=== PATIENT | female | born 1950 | race Caucasian/White ===

== ENCOUNTER 2016-06-05 21:15 | Emergency (ER) | payer MEDICARE, OTHER ==
[2016-06-05 21:35] VITALS: BP 112/68
[2016-06-05] MEDS ORDERED: HYDROmorphone 2 MG/ML SDV IM ONE (21:52)
[2016-06-05] MEDS ORDERED: Ondansetron 8 MG Tab.DIS PO ONE (21:52)
[2016-06-05] MEDS ORDERED: hydrOXYzine HCl 50 MG/ML SDV IM ONE (21:53)
--- NOTE | 2016-06-06 07:13 | ER ---
DATE SEEN: 06/05/2016 TIME SEEN: The patient was seen at 2140 hours. HISTORY OF PRESENT ILLNESS: This 65-year-old woman comes in with a history of onset 14/10 right frontotemporal pounding headache, minimally responsive to 6 tablets of Tylenol, onset 1300 hours today, with associated nausea, photophobia, phonophobia, mild neck pain, without weakness, vomiting, fever, sinus congestion, history of trauma, or facial surgery. The age she had the onset of migraines was 30 years of age. Previous CAT scan approximately 2 years ago was negative. The patient denies facial flushing (cluster headaches)and fever. No compromise in her vision. The nausea was associated with moderate heaves. The patient was transferred to the hospital by her son-in-law. She feels she is under a lot of stress because her is very ill and has stage IV cirrhosis with pneumonia, and she cares for him day and night. In the past, she has had morphine for headaches. REVIEW OF SYSTEMS: HEENT: Negative. As noted above. No sinusitis. No sore throat. No facial trauma or head trauma. CARDIORESPIRATORY: Occasional cough. No shortness of breath. No chest pain, irregular heartbeat or syncope, near syncope, back pain, arm pain, jaw pain, neck pain, or abdominal pain. MUSCULOSKELETAL: Chronic pain, restless legs, and chronic low back pain. ALLERGIES: Compazine, metoclopramide, NSAIDs, penicillins, pseudoephedrine, sumatriptan, tramadol, and tape. CURRENT MEDICATIONS: 1. Requip. 2. Propranolol 120 daily. 3. Meclizine p.r.n. 25 mg. 4. Hydrocodone with acetaminophen 10/325. 5. Hydrochlorothiazide and spironolactone 25/25. 6. Gabapentin 300 mg b.i.d. 7. Soma 350 mg t.i.d. PAST SURGICAL HISTORY: None. 3, para 3-0-0-3. PHYSICAL EXAMINATION: VITAL SIGNS: Blood pressure 112/68, heart rate 67 and regular, oxygen saturation 99%, respiratory rate 18, temperature is 35.8 degrees centigrade. GENERAL: The patient is well nourished, in mild distress. Lights are off in the room. The patient is sitting. I met her before and she was appreciative of the previous ER visit and care. HEENT: Moderate photophobia. Pupils are equal, round, and reactive to light. Conjugate gaze noted. Hearing is good. NECK: No bruits. Pharynx is semidry. LUNGS: Clear to auscultation. No rales, no rhonchi. HEART: S1, S2. No murmur. No irregular rate or rhythm. ABDOMEN: Soft. No guarding. No abdominal discomfort. No rebound. EXTREMITIES: Lower extremities: No edema. JOINTS: Nontender. No discomfort. MUSCULOSKELETAL: Decreased muscle mass, thighs. Mild decreased muscle mass. NEURO: Deep tendon reflexes in upper and lower extremities symmetrical, hypoactive, but present. Ankle jerks absent. Cranial nerves 2 through 12 intact. Oriented x3. No pronator drift. No asymmetry of muscle strength. No dysmetria. Gait appropriate. ASSESSMENT AND PLAN: 1. Migraine. Somewhat unusual to have this at her age. She talked about stress, fatigue, not sleeping because she has been busy caring for her . Plan initially was to use dopamine antagonists, Reglan. However, she is allergic to it; consequently, patient felt that she could get along very nicely with a shot. She was given 2 mg of Dilaudid IM and Zofran for nausea sublingually 8 mg, and dismissed with her headache which is much improved. 2. Headache. 3. Stress. 4. Fatigue. 5. Restless legs. 6. Multiple allergies. 7. History of coronary artery disease. 8. Hypertension, treated. 9. Chronic low back pain. /[id number] DANG/WILBERTO FOFANA
== END 2016-06-05 22:10 | disposition home or self-care (01) ==
LOC: FB.ED 21:15
DX: G43.909 Migraine, unspecified, not intractable, without status migrainosus (principal); F43.9 Reaction to severe stress, unspecified; G25.81 Restless legs syndrome; I25.10 Atherosclerotic heart disease of native coronary artery without angina pectoris; I10 Essential (primary) hypertension; M54.5 Low back pain; G89.29 Other chronic pain; Z88.5 Allergy status to narcotic agent; Z88.0 Allergy status to penicillin; Z88.6 Allergy status to analgesic agent; Z91.09 Other allergy status, other than to drugs and biological substances
CPT/HCPCS: 96372; 99283; A9270; J1170; J3410; 99284

== ENCOUNTER 2016-06-28 13:24 | Emergency (ER) | payer MEDICARE, OTHER ==
[2016-06-28] MEDS ORDERED: HYDROmorphone 2 MG/ML SDV IM ONE (13:46)
[2016-06-28] MEDS ORDERED: hydrOXYzine HCl 50 MG/ML SDV IM ONE (13:46)
--- NOTE | 2016-06-28 13:50 | EDM.PDOC ---
ED HPI HEADACHE COMPLAINT - General Stated Complaint: MIGRAINE Time Seen by Provider: 06/28/16 13:25 Source: Reports: Patient, Family History Limitations: Reports: Other (H/A) - History of Present Illness INITIAL COMMENTS - FREE TEXT/NARRATIVE: 65 yaers old w f with h/o migraine headache, come top the ed due to serever "migraine" Headache. He SO last Wednesday. Pain is located behind her l r eye. no trauma, not the worst headache ever. No has nauseas as well, did not vomit. Symptom Onset Date: 06/28/16 Symptom Onset Time: 08:00 Timing/Duration: Reports: hour(s): Location: Reports: frontal, temporal, right Quality: Reports: pounding, squeezing Severity: Reports: moderate Context: Reports: other (stress) Associated Symptoms: Reports: photophobia - Related Data Allergies/ADRs: Allergies Allergy/AdvReac Type Severity Reaction Status Date / Time prochlorperazine edisylate Allergy Intermediate Blurred Verified 06/28/16 13:40 [From Compazine] Vision prochlorperazine maleate Allergy Intermediate Blurred Verified 06/28/16 13:40 [From Compazine] Vision levofloxacin [From Levaquin] Allergy Tremors Verified 06/28/16 13:40 metoclopramide Allergy Tremors Verified 06/28/16 13:40 NSAIDS (Non-Steroidal Allergy Stomach Verified 06/28/16 13:40 Anti-Inflamma Upset Penicillins Allergy Stomach Verified 06/28/16 13:40 Upset pseudoephedrine HCl Allergy Tachycardia Verified 06/28/16 13:40 [From Sudafed] sumatriptan [From Imitrex] Allergy Chest Pain Verified 06/28/16 13:40 sumatriptan succinate Allergy Chest Pain Verified 06/28/16 13:40 [From Imitrex] tramadol Allergy Tachycardia Verified 06/28/16 13:40 tape Allergy Rash Uncoded 06/28/16 13:40 Home Meds: Home Meds HCTZ/Spironolactone [Spironolactone/HCTZ 25-25 MG] 2 tab PO BID 04/15/13 [ History] Meclizine [Antivert] 25 mg PO ASDIRECTED PRN 04/15/13 [History] Multivitamin [Multivitamins] 1 each PO DAILY 04/15/13 [History] Propranolol [Inderal LA] 120 mg PO DAILY 04/15/13 [History] rOPINIRole [Requip] 2 mg PO BEDTIME 04/15/13 [History] Carisoprodol [Soma] 350 mg PO TID 07/23/13 [History] Hydrocodone/Acetaminophen [Hydrocodon-Acetaminophn 10-325] 1 each PO Q6HR PRN [History] Gabapentin [Neurontin] 300 mg PO BID 02/15/16 [History] traZODone 100 mg PO DAILY 06/28/16 [History] Past Medical History - Past Health History Medical/Surgical History: Denies Medical/Surgical History HEENT History: Reports: Sinusitis Other HEENT History: SINUS INFECTIONS Cardiovascular History: Reports: Other (see below) Other Cardiovascular History: takes BP med for water retention Respiratory History: Reports: Sleep apnea Other Respiratory History: has CPAP Gastrointestinal History: Reports: GERD, PUD Other Gastrointestinal History: ulcer when kid Genitourinary History: Reports: Renal calculus 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: Musculoskeletal History: Reports: Arthritis, Back pain, chronic, Fracture, Fibromyalgia Other Musculoskeletal History: stress fx in back x 2 Neurological History: Reports: Migraines Psychiatric History: Reports: Anxiety, Depression - Infectious Disease History Infectious Disease History: Reports: Chicken pox, Measles, Mumps - Past Surgical History HEENT Surgical History: Reports: Oral surgery, Tonsillectomy GI Surgical History: Reports: Appendectomy, Cholecystectomy, Colonoscopy, EGD, Hernia repair/other Female Surgical History: Reports: Hysterectomy, Salpingo-oophorectomy Other Female Surgeries/Procedures: bladder repair Musculoskeletal Surgical History: Reports: Arthroscopic procedure, Carpal tunnel , Knee replacement Other Musculoskeletal Surgeries/Procedures:: RIGHT ANKLE, LEFT THUMB, bilat knee replacement, bilat carpal tunnel surg Social & Family History - Tobacco Use Smoking Status *Q: Never Smoker Second Hand Smoke Exposure: No - Caffeine Use Caffeine Use: Reports: None - Alcohol Use Days Per Week of Alcohol Use: 1 Number of Drinks Per Day: 2 Total Drinks Per Week: 2 - Recreational Drug Use Recreational Drug Use: No - Living Situation & Occupation Living situation: Reports: ED ROS GENERAL - Review of Systems Review Of Systems: See Below Constitutional: Reports: no symptoms HEENT: Reports: Other (h/a) Respiratory: Reports: No Symptoms Cardiovascular: Reports: No symptoms Endocrine: Reports: no symptoms GI/Abdominal: Reports: No symptoms : Reports: no symptoms Musculoskeletal: Reports: no symptoms Skin: Reports: no symptoms Neurological: Reports: No Symptoms Psychiatric: Reports: No symptoms Hematologic/Lymphatic: Reports: no symptoms Immunologic: Reports: no symptoms - Physical Exam Exam: See Below Exam Limited By: Other (headache) General Appearance: alert, WD/WN, mild distress Eye Exam: bilateral eye: normal inspection Ears: normal external exam, normal canal, hearing grossly normal Nose: normal inspection, normal mucosa Throat/Mouth: Normal inspection, Normal lips, Normal teeth, Normal oropharynx, Normal voice Head Exam: atraumatic, normocephalic Neck: normal inspection, supple, non-tender, full range of motion Respiratory/Chest: no respiratory distress, lungs clear, normal breath sounds, no accessory muscle use, chest non-tender Cardiovascular: normal peripheral pulses GI/Abdominal: normal bowel sounds, soft, non tender, no distention (Female) Exam: Deferred Rectal (Female) Exam: Deferred Neuro Exam (Abbreviated): alert, oriented, CN II-XII intact, normal cognition, normal gait Back Exam: normal inspection, full range of motion Extremities: normal inspection, normal range of motion, non-tender Psychiatric: normal affect, depressed mood Skin Exam: Warm, Dry, Intact, Normal color Course - Vital Signs Text/Narrative:: 65 yaers old w f with h/o migraine headache, come top the ed due to serever "migraine" Headache. He SO last Wednesday. Pain is located behind her l r eye. no trauma, not the worst headache ever. No has nauseas as well, did not vomit. Last Recorded V/S: Last Vital Signs Temp 36.9 C 06/28/16 13:25 Pulse 73 06/28/16 13:25 Resp 18 06/28/16 13:25 BP 107/56 L 06/28/16 13:25 Pulse Ox 99 06/28/16 13:25 - Orders/Labs/Meds Meds: Medications Discontinued Medications Generic Name Dose Route Start Last Admin Trade Name Freq PRN Reason Stop Dose Admin Hydromorphone HCl 1 mg 06/28/16 13:46 06/28/16 13:58 Dilaudid IM 06/28/16 13:47 1 mg ONETIME ONE Administration Hydroxyzine HCl 50 mg 06/28/16 13:46 06/28/16 13:54 Vistaril IM 06/28/16 13:47 50 mg ONETIME ONE Administration Departure - Departure Time of Disposition: 14:05 Disposition: Home, Self-Care 01 Condition: good Clinical Impression: Classic migraine with aura Qualifiers: Status migrainosus presence: without status migrainosus Intractability: not intractable Qualified Code(s): G43.109 - Migraine with aura, not intractable, without status migrainosus Referrals: Magali Hannon [employer] SUPERVISOR [Primary Care Provider] - Additional Instructions: Please cont your meds, please follow up, please came back to the ed if symptoms get worse acutely
[2016-06-28 14:14] VITALS: BP 105/52
== END 2016-06-28 14:20 | disposition home or self-care (01) ==
LOC: FB.ED 13:24
DX: G43.109 Migraine with aura, not intractable, without status migrainosus (principal); K21.9 Gastro-esophageal reflux disease without esophagitis; M19.90 Unspecified osteoarthritis, unspecified site; F41.9 Anxiety disorder, unspecified; F32.9 Major depressive disorder, single episode, unspecified; Z90.49 Acquired absence of other specified parts of digestive tract; Z90.710 Acquired absence of both cervix and uterus; Z88.8 Allergy status to other drugs, medicaments and biological substances; Z88.1 Allergy status to other antibiotic agents; Z88.0 Allergy status to penicillin; Z88.6 Allergy status to analgesic agent; Z91.09 Other allergy status, other than to drugs and biological substances; Z79.899 Other long term (current) drug therapy
CPT/HCPCS: 96372; 99283; J1170; J3410; 99284

== ENCOUNTER 2016-07-02 16:30 | Emergency (ER) | payer MEDICARE, OTHER ==
[2016-07-02 16:44] VITALS: BP 101/63
[2016-07-02] MEDS ORDERED: hydrOXYzine HCl 50 MG/ML SDV IM STA (16:51)
[2016-07-02] MEDS ORDERED: HYDROmorphone 2 MG/ML SDV IM ONE (16:52)
--- NOTE | 2016-07-02 17:31 | EDM.PDOC ---
ED HPI HEADACHE COMPLAINT - General Chief Complaint: Headache Stated Complaint: MIGRAINE Time Seen by Provider: 07/02/16 16:38 Source: Reports: Patient, Family History Limitations: Reports: No limitations - History of Present Illness INITIAL COMMENTS - FREE TEXT/NARRATIVE: 65 Years old w f with a h/o migraine, allergic to imitrex, Toradol, Zofran, came to the ed due to Nausea and photophobia. Ni Trauma, not the worst headache , no other acute medical issues at this time. Symptom Onset Date: 07/02/16 Symptom Onset Time: 06:00 Timing/Duration: Reports: hour(s):, gradual onset Location: Reports: frontal, temporal, left, temporal, right Quality: Reports: pounding, squeezing Severity: Reports: moderate Context: Reports: other (H/O migraine) Associated Symptoms: Reports: photophobia - Related Data Allergies/ADRs: Allergies Allergy/AdvReac Type Severity Reaction Status Date / Time prochlorperazine edisylate Allergy Intermediate Blurred Verified 07/02/16 16:45 [From Compazine] Vision prochlorperazine maleate Allergy Intermediate Blurred Verified 07/02/16 16:45 [From Compazine] Vision levofloxacin [From Levaquin] Allergy Tremors Verified 07/02/16 16:45 metoclopramide Allergy Tremors Verified 07/02/16 16:45 NSAIDS (Non-Steroidal Allergy Stomach Verified 07/02/16 16:45 Anti-Inflamma Upset Penicillins Allergy Stomach Verified 07/02/16 16:45 Upset pseudoephedrine HCl Allergy Tachycardia Verified 07/02/16 16:45 [From Sudafed] sumatriptan [From Imitrex] Allergy Chest Pain Verified 07/02/16 16:45 sumatriptan succinate Allergy Chest Pain Verified 07/02/16 16:45 [From Imitrex] tramadol Allergy Tachycardia Verified 07/02/16 16:45 tape Allergy Rash Uncoded 06/28/16 13:40 Home Meds: Home Meds HCTZ/Spironolactone [Spironolactone/HCTZ 25-25 MG] 2 tab PO BID 04/15/13 [ History] Meclizine [Antivert] 25 mg PO ASDIRECTED PRN 04/15/13 [History] Multivitamin [Multivitamins] 1 each PO DAILY 04/15/13 [History] Propranolol [Inderal LA] 120 mg PO DAILY 04/15/13 [History] rOPINIRole [Requip] 2 mg PO BEDTIME 04/15/13 [History] Carisoprodol [Soma] 350 mg PO TID 07/23/13 [History] Hydrocodone/Acetaminophen [Hydrocodon-Acetaminophn 10-325] 1 each PO Q6HR PRN [History] Gabapentin [Neurontin] 300 mg PO BID 02/15/16 [History] traZODone 100 mg PO DAILY 06/28/16 [History] Past Medical History - Past Health History Medical/Surgical History: Denies Medical/Surgical History HEENT History: Reports: Sinusitis Other HEENT History: SINUS INFECTIONS Cardiovascular History: Reports: Other (see below) Other Cardiovascular History: takes BP med for water retention Respiratory History: Reports: Sleep apnea Other Respiratory History: has CPAP Gastrointestinal History: Reports: GERD, PUD Other Gastrointestinal History: ulcer when kid Genitourinary History: Reports: Renal calculus 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: Musculoskeletal History: Reports: Arthritis, Back pain, chronic, Fracture, Fibromyalgia Other Musculoskeletal History: stress fx in back x 2 Neurological History: Reports: Migraines Psychiatric History: Reports: Anxiety, Depression - Infectious Disease History Infectious Disease History: Reports: Chicken pox, Measles, Mumps - Past Surgical History HEENT Surgical History: Reports: Oral surgery, Tonsillectomy GI Surgical History: Reports: Appendectomy, Cholecystectomy, Colonoscopy, EGD, Hernia repair/other Female Surgical History: Reports: Hysterectomy, Salpingo-oophorectomy Other Female Surgeries/Procedures: bladder repair Musculoskeletal Surgical History: Reports: Arthroscopic procedure, Carpal tunnel , Knee replacement Other Musculoskeletal Surgeries/Procedures:: RIGHT ANKLE, LEFT THUMB, bilat knee replacement, bilat carpal tunnel surg Social & Family History - Family History Family Medical History: Noncontributory - Tobacco Use Smoking Status *Q: Never Smoker Second Hand Smoke Exposure: No - Caffeine Use Caffeine Use: Reports: None - Alcohol Use Days Per Week of Alcohol Use: 1 Number of Drinks Per Day: 2 Total Drinks Per Week: 2 - Recreational Drug Use Recreational Drug Use: No - Living Situation & Occupation Living situation: Reports: ED ROS GENERAL - Review of Systems Review Of Systems: See Below Constitutional: Reports: no symptoms HEENT: Reports: Other (headache) Respiratory: Reports: No Symptoms Cardiovascular: Reports: No symptoms Endocrine: Reports: no symptoms GI/Abdominal: Reports: No symptoms : Reports: no symptoms Musculoskeletal: Reports: no symptoms Skin: Reports: no symptoms Neurological: Reports: No Symptoms Psychiatric: Reports: No symptoms Hematologic/Lymphatic: Reports: no symptoms Immunologic: Reports: no symptoms - Physical Exam Exam: See Below Exam Limited By: No limitations General Appearance: alert, WD/WN, mild distress Eye Exam: bilateral eye: normal inspection Ears: normal external exam, normal canal, hearing grossly normal Nose: normal inspection, normal mucosa, no blood Throat/Mouth: Normal inspection, Normal lips, Normal teeth, Normal gums, Normal oropharynx, Normal voice Head Exam: atraumatic, normocephalic Neck: normal inspection, supple, non-tender, full range of motion Respiratory/Chest: no respiratory distress, lungs clear Cardiovascular: normal peripheral pulses, regular rate, rhythm, no edema GI/Abdominal: normal bowel sounds, soft, non tender, no organomegaly (Female) Exam: Deferred Rectal (Female) Exam: Deferred Neuro Exam (Abbreviated): alert, oriented, CN II-XII intact, normal cognition, normal gait Back Exam: normal inspection, full range of motion Extremities: normal inspection, normal range of motion, non-tender Psychiatric: normal affect, normal mood Skin Exam: Warm, Dry, Intact, Normal color Course - Vital Signs Text/Narrative:: 65 Years old w f with a h/o migraine, allergic to imitrex, Toradol, Zofran, came to the ed due to Nausea and photophobia. Ni Trauma, not the worst headache , no other acute medical issues at this time. PE: Photophobia, nausea, temp headache. Impression: Classic migraine Tx: Dilaudid ans vistaril Reexam: Improved Plan: D/C with instructions Last Recorded V/S: Last Vital Signs Temp 36.6 C 07/02/16 16:38 Pulse 68 07/02/16 16:38 Resp 14 07/02/16 16:38 BP 101/63 07/02/16 16:38 Pulse Ox 98 07/02/16 16:38 - Orders/Labs/Meds Meds: Medications Discontinued Medications Generic Name Dose Route Start Last Admin Trade Name Freq PRN Reason Stop Dose Admin Hydromorphone HCl 1 mg 07/02/16 16:52 07/02/16 17:06 Dilaudid IM 07/02/16 16:53 1 mg ONETIME ONE Administration Hydroxyzine HCl 50 mg 07/02/16 16:51 07/02/16 17:04 Vistaril IM 07/02/16 16:52 50 mg ONETIME STA Administration Departure - Departure Time of Disposition: 17:39 Disposition: Home, Self-Care 01 Condition: good Clinical Impression: Migraine Qualifiers: Migraine type: with aura Status migrainosus presence: without status migrainosus Intractability: not intractable Qualified Code(s): G43.109 - Migraine with aura, not intractable, without status migrainosus Referrals: Magali Hannon 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
== END 2016-07-02 17:08 | disposition home or self-care (01) ==
LOC: FB.ED 16:30
DX: G43.109 Migraine with aura, not intractable, without status migrainosus (principal); K21.9 Gastro-esophageal reflux disease without esophagitis; M19.90 Unspecified osteoarthritis, unspecified site; F41.9 Anxiety disorder, unspecified; F32.9 Major depressive disorder, single episode, unspecified; Z90.49 Acquired absence of other specified parts of digestive tract; Z90.710 Acquired absence of both cervix and uterus; Z90.721 Acquired absence of ovaries, unilateral; Z98.890 Other specified postprocedural states; Z88.8 Allergy status to other drugs, medicaments and biological substances; Z88.0 Allergy status to penicillin; Z88.6 Allergy status to analgesic agent; Z91.09 Other allergy status, other than to drugs and biological substances; Z79.899 Other long term (current) drug therapy
CPT/HCPCS: 96372; 99283; J1170; J3410; 99284

== ENCOUNTER 2017-02-17 16:03 | Emergency (ER) | payer MEDICARE, OTHER ==
[2017-02-17] MEDS ORDERED: Phenazopyridine 95 MG Tab PO ONE (16:04)
--- NOTE | 2017-02-17 17:19 | EDM.PDOC ---
ED HPI GENERAL MEDICAL PROBLEM - General Chief Complaint: Genitourinary Problem Stated Complaint: catherter pain Time Seen by Provider: 02/17/17 16:40 Source of Information: Reports: Patient History Limitations: Reports: No Limitations - History of Present Illness INITIAL COMMENTS - FREE TEXT/NARRATIVE: c/o pain in suprapubic area x 8h h/o surgery for hysterectomy, bladder prolapse and later a tuck for urinary incontinence was seen 02/07 in [facility] ED for 24h of difficulty voiding, vásquez placed, begun on Macrobid BID 1-2d later which she is taking now Vásquez removed 1d ago but could not void and it was placed again urologist Dr Kincaid has dx a uretheral prolapse, he called pt today and said she would need to got o [place] for surgery no f/c/d today, just bladder discomfort also on oxybutynin daily mid lower abdomen Pain Score (Numeric/FACES): 10 - Related Data Allergies Allergy/AdvReac Type Severity Reaction Status Date / Time prochlorperazine edisylate Allergy Intermediate Blurred Verified 02/17/17 16:35 [From Compazine] Vision prochlorperazine maleate Allergy Intermediate Blurred Verified 02/17/17 16:35 [From Compazine] Vision levofloxacin [From Levaquin] Allergy Tremors Verified 02/17/17 16:35 metoclopramide Allergy Tremors Verified 02/17/17 16:35 NSAIDS (Non-Steroidal Allergy Stomach Verified 02/17/17 16:35 Anti-Inflamma Upset Penicillins Allergy Stomach Verified 02/17/17 16:35 Upset pseudoephedrine HCl Allergy Tachycardia Verified 02/17/17 16:35 [From Sudafed] sumatriptan [From Imitrex] Allergy Chest Pain Verified 02/17/17 16:35 sumatriptan succinate Allergy Chest Pain Verified 02/17/17 16:35 [From Imitrex] tramadol Allergy Tachycardia Verified 02/17/17 16:35 tape Allergy Rash Uncoded 02/17/17 16:35 Home Meds: Home Meds HCTZ/Spironolactone [Spironolactone/HCTZ 25-25 MG] 2 tab PO BID 04/15/13 [ History] Meclizine [Antivert] 25 mg PO ASDIRECTED PRN 04/15/13 [History] Multivitamin [Multivitamins] 1 each PO DAILY 04/15/13 [History] Propranolol [Inderal LA] 120 mg PO DAILY 04/15/13 [History] rOPINIRole [Requip] 2 mg PO BEDTIME 04/15/13 [History] Carisoprodol [Soma] 350 mg PO TID 07/23/13 [History] Hydrocodone/Acetaminophen [Hydrocodon-Acetaminophn 10-325] 1 each PO Q6HR PRN [History] Gabapentin [Neurontin] 300 mg PO BID 02/15/16 [History] traZODone 100 mg PO DAILY 06/28/16 [History] Phenazopyridine HCl 200 mg PO TID #9 tablet 02/17/17 [Rx] Sulfamethoxazole/Trimethoprim [Bactrim Ds Tablet] 1 each PO BID #13 tablet 02/17 [Rx] Past Medical History - Past Health History Medical/Surgical History: Denies Medical/Surgical History HEENT History: Reports: Sinusitis Other HEENT History: SINUS INFECTIONS Cardiovascular History: Reports: Other (See Below) Other Cardiovascular History: takes BP med for water retention Respiratory History: Reports: Sleep Apnea Other Respiratory History: has CPAP Gastrointestinal History: Reports: GERD, PUD Other Gastrointestinal History: ulcer when kid Genitourinary History: Reports: Renal Calculus [employer] History: Reports: Musculoskeletal History: Reports: Arthritis, Back Pain, Chronic, Fracture, Fibromyalgia Other Musculoskeletal History: stress fx in back x 2 Neurological History: Reports: Migraines Psychiatric History: Reports: Anxiety, Depression - Infectious Disease History Infectious Disease History: Reports: Chicken Pox, Measles, Mumps - Past Surgical History HEENT Surgical History: Reports: Oral Surgery, Tonsillectomy GI Surgical History: Reports: Appendectomy, Cholecystectomy, Colonoscopy, EGD, Hernia Repair/Other Female Surgical History: Reports: Hysterectomy, Salpingo-Oophorectomy Musculoskeletal Surgical History: Reports: Arthroscopic Procedure, Carpal Tunnel , Knee Replacement Social & Family History - Family History Family Medical History: Noncontributory - Tobacco Use Smoking Status *Q: Never Smoker Second Hand Smoke Exposure: No - Caffeine Use Caffeine Use: Reports: None - Alcohol Use Days Per Week of Alcohol Use: 1 Number of Drinks Per Day: 2 Total Drinks Per Week: 2 - Recreational Drug Use Recreational Drug Use: No - Living Situation & Occupation Living situation: Reports: ED ROS GENERAL - Review of Systems Review Of Systems: See Below Constitutional: Reports: No Symptoms HEENT: Reports: No Symptoms Respiratory: Reports: No Symptoms Cardiovascular: Reports: No Symptoms Endocrine: Reports: No Symptoms GI/Abdominal: Reports: Other (bladder pain) : Reports: No Symptoms Musculoskeletal: Reports: No Symptoms Skin: Reports: No Symptoms Neurological: Reports: No Symptoms Psychiatric: Reports: No Symptoms Hematologic/Lymphatic: Reports: No Symptoms Immunologic: Reports: No Symptoms ED EXAM, RENAL/ - Physical Exam Exam: See Below Exam Limited By: No Limitations General Appearance: Alert, WD/WN, No Apparent Distress, Other (moves easily) Respiratory/Chest: No Respiratory Distress, Lungs Clear, Normal Breath Sounds, No Accessory Muscle Use, Chest Non-Tender Cardiovascular: Regular Rate, Rhythm, No Edema, No Gallop, No JVD, No Rub GI/Abdominal: Normal Bowel Sounds, Soft, No Organomegaly, No Distention, No Mass , Other (slight suprapubic tender) Back Exam: Normal Inspection, Full Range of Motion, NT Extremities: Normal Inspection, Normal Range of Motion, Non-Tender, No Pedal Edema, Other (leg back above L ankle) Neurological: Alert, Oriented, CN II-XII Intact, Normal Cognition, No Motor/ Sensory Deficits Psychiatric: Normal Affect, Normal Mood Skin Exam: Warm, Dry, Intact, Normal Color, No Rash Lymphatic: No Adenopathy Course - Vital Signs Last Recorded V/S: Last Vital Signs Temp 36.6 C 02/17/17 16:05 Pulse 60 02/17/17 16:05 Resp 18 02/17/17 16:05 BP 107/61 02/17/17 16:05 Pulse Ox 99 02/17/17 16:05 - Orders/Labs/Meds Orders: Active Orders 24 hr Category Date Time Status CULTURE URINE [RM] Stat Lab 02/17/17 16:48 Received Phenazopyridine [Urinary Pain Relief] Med 02/17/17 19:00 Active 95 mg PO TIDPC Medication Orders Phenazopyridine HCl (Urinary Pain Relief) 95 mg PO TIDPC [facility] Labs: Laboratory Tests 02/17/17 Range/Units 16:47 Urine Color [place] (YELLOW) Urine Appearance Cloudy (CLEAR) Urine pH 7.0 H (5.0-6.5) Ur Specific [place] 1.005 L (1.010-1.025) Urine Protein 30 H (NEGATIVE) mg/dL Urine Glucose (UA) Normal (NEGATIVE) mg/dL Urine Ketones Negative (NEGATIVE) mg/dL Urine Occult Blood Large H (NEGATIVE) Urine Nitrite Negative (NEGATIVE) Urine Bilirubin Negative (NEGATIVE) Urine Urobilinogen 1 H (NEGATIVE) mg/dL Ur Leukocyte Esterase Moderate H (NEGATIVE) Urine RBC >100 H (0) Urine WBC 10-20 H (0) Ur Squamous Epith Cells Occasional (NS,R,O) Urine Bacteria Few H (NS) Meds: Medications Generic Name Dose Route Start Last Admin Trade Name Freq PRN Reason Stop Dose Admin Phenazopyridine HCl 95 mg 02/17/17 19:00 Urinary Pain Relief PO TIDPC SHAHRIAR Discontinued Medications Generic Name Dose Route Start Last Admin Trade Name Freq PRN Reason Stop Dose Admin Trimethoprim/Sulfamethoxazole 1 tab 02/17/17 17:50 Septra Ds PO 02/17/17 17:51 ONETIME ONE - Re-Assessments/Exams Free Text/Narrative Re-Assessment/Exam: 02/17/17 17:46 u/a with >100 rbc, 10-20 wbc, occ epi, few bacteria. UC requested. May have an early UTI, or may WBC from inflammation. exam with RN with nl urethera with vásquez in place, no red, no d/c, no swell, no external prolapse, no leakage. Departure - Departure Time of Disposition: 17:49 Disposition: Home, Self-Care 01 Condition: Good Clinical Impression: UTI (urinary tract infection) - Discharge Information Prescriptions: Phenazopyridine HCl 200 mg PO TID #9 tablet Sulfamethoxazole/Trimethoprim [Bactrim Ds Tablet] 1 each PO BID #13 tablet Instructions: Urinary Tract Infection, Adult, [id number] Referrals: Shannon Du PA-C [Primary Care Provider] - Forms: ED Department Discharge Additional Instructions: Stop the Marcobid. Begin Bactrim DS 1 tab 2 times a day for 7 days. For burning, take phenazopyridine 1 tab tonight, then 200 mg 1 tab 3 times a day for 3 days. May refill if needed. See your doctor in one week for repeat urinalysis and further evaluation. See your doctor in 2 days if you are not better. Call your Physician or Return to Emergency Department if: * Your condition worsens in any way. * You develop fever greater than 100.4. * You have vomitting that does not stop with medications. * You have pain that is not controlled with medications. - My Orders Last 24 Hours: My Active Orders 02/17/17 16:48 CULTURE URINE [RM] Stat 02/17/17 19:00 Phenazopyridine [Urinary Pain Relief] 95 mg PO TIDPC - Assessment/Plan Last 24 Hours: My Active Orders 02/17/17 16:48 CULTURE URINE [RM] Stat 02/17/17 19:00 Phenazopyridine [Urinary Pain Relief] 95 mg PO TIDPC
[2017-02-17] MEDS ORDERED: Sulfamethoxazole/Trimethoprim 800-160 MG Tab PO ONE (17:50)
[2017-02-17 18:47] VITALS: BP 99/53
[2017-02-17] MEDS ORDERED: Phenazopyridine 95 MG Tab PO SCH (19:00)
== END 2017-02-17 18:20 | disposition home or self-care (01) ==
LOC: FB.ED 16:03
DX: N39.0 Urinary tract infection, site not specified (principal); G47.30 Sleep apnea, unspecified; K21.9 Gastro-esophageal reflux disease without esophagitis; F32.9 Major depressive disorder, single episode, unspecified; Z79.899 Other long term (current) drug therapy; Z88.1 Allergy status to other antibiotic agents; Z88.0 Allergy status to penicillin; Z88.5 Allergy status to narcotic agent; Z88.8 Allergy status to other drugs, medicaments and biological substances
CPT/HCPCS: 81001; 87086; 99283; A9270

== ENCOUNTER 2017-08-13 19:13 | Emergency (ER) | payer MEDICARE, OTHER ==
--- NOTE | 2017-08-13 19:47 | EDM.PDOC ---
ED HPI GENERAL MEDICAL PROBLEM - General Chief Complaint: Genitourinary Problem Stated Complaint: UNABLE TO PEE Time Seen by Provider: 08/13/17 19:30 Source of Information: Reports: Patient History Limitations: Reports: No Limitations - History of Present Illness INITIAL COMMENTS - FREE TEXT/NARRATIVE: Tali comes to [facility] ED with sensation of suprapubic pain and ability to void in only small amounts since an indwelling catheter was removed at [address] [facility]. Initial sxs began 5 days ago in [place], managed with indwelling catheter until this am. She has been studied at [facility] in February 2017. There is no dysuria, incontinence, backpain, fever, or vaginal sxs. She was instructed in self cath this am, but has not tried this approach prior to being seen here. Upon arrival, she voided 41 ml of cloudy urine, and a bladder scan revealed a residual volume of 117ml. A UA is pending. - Related Data Allergies Allergy/AdvReac Type Severity Reaction Status Date / Time prochlorperazine edisylate Allergy Intermediate Blurred Verified 02/17/17 16:35 [From Compazine] Vision prochlorperazine maleate Allergy Intermediate Blurred Verified 02/17/17 16:35 [From Compazine] Vision levofloxacin [From Levaquin] Allergy Tremors Verified 02/17/17 16:35 metoclopramide Allergy Tremors Verified 02/17/17 16:35 NSAIDS (Non-Steroidal Allergy Stomach Verified 02/17/17 16:35 Anti-Inflamma Upset Penicillins Allergy Stomach Verified 02/17/17 16:35 Upset pseudoephedrine HCl Allergy Tachycardia Verified 02/17/17 16:35 [From Sudafed] sumatriptan [From Imitrex] Allergy Chest Pain Verified 02/17/17 16:35 sumatriptan succinate Allergy Chest Pain Verified 02/17/17 16:35 [From Imitrex] tramadol Allergy Tachycardia Verified 02/17/17 16:35 tape Allergy Rash Uncoded 02/17/17 16:35 Home Meds: Home Meds HCTZ/Spironolactone [Spironolactone/HCTZ 25-25 MG] 2 tab PO BID 04/15/13 [ History] Meclizine [Antivert] 25 mg PO ASDIRECTED PRN 04/15/13 [History] Multivitamin [Multivitamins] 1 each PO DAILY 04/15/13 [History] Propranolol [Inderal LA] 120 mg PO DAILY 04/15/13 [History] rOPINIRole [Requip] 3 mg PO BEDTIME 04/15/13 [History] Carisoprodol [Soma] 350 mg PO TID 07/23/13 [History] Hydrocodone/Acetaminophen [Hydrocodon-Acetaminophn 10-325] 1 each PO Q6HR PRN [History] Gabapentin [Neurontin] 300 mg PO BID 02/15/16 [History] traZODone 50 mg PO BEDTIME 06/28/16 [History] Levothyroxine [Synthroid] 50 mcg PO DAILY 02/17/17 [History] Magnesium 200 mg PO DAILY 02/17/17 [History] Oxybutynin [Oxybutynin ER] 10 mg PO DAILY 02/17/17 [History] atorvaSTATin [Lipitor] 10 mg PO DAILY 02/17/17 [History] ClonazePAM [KlonoPIN] 0.5 mg PO 08/13/17 [History] Past Medical History - Past Health History Medical/Surgical History: Denies Medical/Surgical History HEENT History: Reports: Sinusitis Other HEENT History: SINUS INFECTIONS Cardiovascular History: Reports: Other (See Below) Other Cardiovascular History: takes BP med for water retention Respiratory History: Reports: Sleep Apnea Other Respiratory History: has CPAP Gastrointestinal History: Reports: GERD, PUD Other Gastrointestinal History: ulcer when kid Genitourinary History: Reports: Renal Calculus, Other (See Below) (voiding problems) [employer] History: Reports: Musculoskeletal History: Reports: Arthritis, Back Pain, Chronic, Fracture, Fibromyalgia Other Musculoskeletal History: stress fx in back x 2 Neurological History: Reports: Migraines Psychiatric History: Reports: Anxiety, Depression - Infectious Disease History Infectious Disease History: Reports: Chicken Pox, Measles, Mumps - Past Surgical History HEENT Surgical History: Reports: Oral Surgery, Tonsillectomy GI Surgical History: Reports: Appendectomy, Cholecystectomy, Colonoscopy, EGD, Hernia Repair/Other Female Surgical History: Reports: Hysterectomy, Salpingo-Oophorectomy Musculoskeletal Surgical History: Reports: Arthroscopic Procedure, Carpal Tunnel , Knee Replacement Social & Family History - Family History Family Medical History: Noncontributory - Caffeine Use Caffeine Use: Reports: None - Living Situation & Occupation Living situation: Reports: ED ROS GENERAL - Review of Systems Review Of Systems: ROS reveals no pertinent complaints other than HPI. ED EXAM, RENAL/ - Physical Exam Exam: See Below Exam Limited By: No Limitations General Appearance: Alert, WD/WN, No Apparent Distress, Anxious Head: Normocephalic Neck: Normal Inspection, Supple Respiratory/Chest: Lungs Clear, Normal Breath Sounds Cardiovascular: Regular Rate, Rhythm, No Edema, No Murmur GI/Abdominal: Normal Bowel Sounds, Soft, No Organomegaly, No Distention, No Mass , Tender (mild suprapubic tenderness) (Female) Exam: Deferred Rectal (Female) Exam: Deferred Back Exam: Normal Inspection Extremities: Normal Inspection Neurological: Alert, Oriented, CN II-XII Intact, Normal Cognition, Normal Gait, No Motor/Sensory Deficits Psychiatric: Normal Affect, Anxious Skin Exam: Warm, Dry, Intact, Normal Color, No Rash Lymphatic: No Adenopathy Course - Vital Signs Text/Narrative:: Ms Snowden was able to self cath with some assistance from RN. A subsequent UA noted packed RBCs and WBCs, UC pending. Bactrim DS 2 tabs stat was administered before discharge for presumptive UTI. Last Recorded V/S: Last Vital Signs Temp 36.9 C 08/13/17 19:25 Pulse 60 08/13/17 19:25 Resp 16 08/13/17 19:25 BP 111/62 08/13/17 19:25 Pulse Ox 98 08/13/17 19:25 - Orders/Labs/Meds Orders: Active Orders 24 hr Category Date Time Status CULTURE URINE [RM] Stat Lab 08/13/17 19:25 Received UA W/MICROSCOPIC [URIN] Stat Lab 08/13/17 19:25 Ordered Sulfamethoxazole/Trimethoprim [Septra DS] Med 08/13/17 20:23 Once 2 tab PO ONETIME ONE Labs: Laboratory Tests 08/13/17 Range/Units 19:25 Urine Color Yellow (YELLOW) Urine Appearance Cloudy (CLEAR) Urine pH 5.0 (5.0-6.5) Ur Specific [place] 1.015 (1.010-1.025) Urine Protein 30 H (NEGATIVE) mg/dL Urine Glucose (UA) Normal (NEGATIVE) mg/dL Urine Ketones Negative (NEGATIVE) mg/dL Urine Occult Blood Large H (NEGATIVE) Urine Nitrite Negative (NEGATIVE) Urine Bilirubin Negative (NEGATIVE) Urine Urobilinogen Normal (NEGATIVE) mg/dL Ur Leukocyte Esterase Large H (NEGATIVE) Urine RBC Packed H (0) Urine WBC Packed H (0) Ur Squamous Epith Cells Few H (NS,R,O) Urine Bacteria Moderate H (NS) Meds: Medications Discontinued Medications Generic Name Dose Route Start Last Admin Trade Name Freq PRN Reason Stop Dose Admin Trimethoprim/Sulfamethoxazole 2 tab 08/13/17 20:23 Septra Ds PO 08/13/17 20:24 ONETIME ONE Departure - Departure Time of Disposition: 20:26 Disposition: Home, Self-Care 01 Condition: Fair Clinical Impression: UTI, Urinary tract infectious disease - Discharge Information Referrals: Shannon Du PA-C [Primary Care Provider] - Forms: ED Department Discharge - Problem List & Annotations (1) UTI, Urinary tract infectious disease SNOMED Code(s): 29306367 Code(s): N39.0 - URINARY TRACT INFECTION, SITE NOT SPECIFIED Status: Acute Current Visit: Yes Annotation/Comment:: Patient will continue hydration and self cath as needed. UC is pending, and she may call in for results tomorrow to ED. - Problem List Review Problem List Initiated/Reviewed/Updated: Yes - My Orders Last 24 Hours: My Active Orders 08/13/17 19:25 CULTURE URINE [RM] Stat UA W/MICROSCOPIC [URIN] Stat 08/13/17 20:23 Sulfamethoxazole/Trimethoprim [Septra DS] 2 tab PO ONETIME ONE - Assessment/Plan Last 24 Hours: My Active Orders 08/13/17 19:25 CULTURE URINE [RM] Stat UA W/MICROSCOPIC [URIN] Stat 08/13/17 20:23 Sulfamethoxazole/Trimethoprim [Septra DS] 2 tab PO ONETIME ONE Plan: Follow up with ED tomorrow.
[2017-08-13 20:05] VITALS: BP 111/62
[2017-08-13] MEDS ORDERED: Sulfamethoxazole/Trimethoprim 800-160 MG Tab PO ONE (20:23)
== END 2017-08-13 20:45 | disposition home or self-care (01) ==
LOC: FB.ED 19:13
DX: N39.0 Urinary tract infection, site not specified (principal); Z88.8 Allergy status to other drugs, medicaments and biological substances; Z79.899 Other long term (current) drug therapy; Z88.0 Allergy status to penicillin; Z88.1 Allergy status to other antibiotic agents
CPT/HCPCS: 51701; 51798; 81001; 87086; 87088; 99282; A9270; 87186

== ENCOUNTER 2017-09-23 21:11 | Observation (INO) | payer MEDICARE, OTHER ==
[2017-09-23] MEDS ORDERED: Morphine 10 MG/ML Syringe IM ONE (21:39)
[2017-09-23] MEDS ORDERED: LORazepam 2 MG/ML SDV IV PRN (23:05)
[2017-09-23] MEDS ORDERED: Enoxaparin 30 MG/0.3 ML Syringe SUBCUT SCH (23:15)
[2017-09-23] MEDS: Pantoprazole 40 MG Vial IVPUSH SCH (23:52)
[2017-09-23] MEDS: Morphine 2 MG/ML Syringe IVPUSH PRN (23:53)
--- NOTE | 2017-09-24 00:08 | ER ---
DATE SEEN: 09/23/2017 TIME SEEN: 2200 hours. CHIEF COMPLAINT: Chest pain. HISTORY OF PRESENT ILLNESS: This is a 66-year-old female complaining of chest pain on the right side, radiating to the center of the chest. Pain started this morning insidiously without trauma or any injury. Pain is severe, not improved by hydrocodone, associated with difficulty breathing and pleuritic in nature, but she has no cough, fever, or chills. PAST MEDICAL HISTORY: Sleep apnea, hypertension, migraine headaches, chronic back pain, fibromyalgia, anxiety, and depression. SOCIAL HISTORY: Does not smoke or drink. PHYSICAL EXAMINATION: VITAL SIGNS: Blood pressure is normal. Pulse is 68 and temperature 98.0. ENT: Normal. NECK: Supple. CHEST: There is tenderness in the right rib cage to palpation. LUNGS: Clear. CARDIOVASCULAR: S1, S2 normal. MENTAL STATUS: Normal affect. LABORATORY DATA: Initial labs including a D-dimer were negative. Chest x-ray was unremarkable to my interpretation. Hemoglobin 10.8 with an MCV of 101.2. EKG, normal sinus rhythm. IMPRESSION: Atypical chest pain. PLAN: I gave her 10 mg of morphine IM with no improvement. I elected to admit her for observation with repeat labs in the morning. /[id number] ARYA/[id number]
[2017-09-24] MEDS: Sodium Chloride 0.9% 10 ML Syringe FLUSH PRN ×2 (02:32→05:39)
[2017-09-24] MEDS: Morphine 2 MG/ML Syringe IVPUSH PRN ×2 (02:33→05:43)
[2017-09-24 07:35] VITALS: BP 105/48
--- NOTE | 2017-09-24 09:16 | PCM.HP ---
H&P History of Present Illness - General Date of Service: 09/24/17 Admit Problem/Dx: Admission Diagnosis/Problem Admission Diagnosis/Problem Chest pain Source of Information: Patient, Other (ER note) History Limitations: Reports: No Limitations - History of Present Illness Initial Comments - Free Text/Narative: This is a 66-year-old female patient started having right thoracic chest pain. She says it feels like someone squeezing her breasts that radiates around to her right scapula. She has no cough. She says she felt maybe a couple times she is shortness of breath but not really sure. She has no retrosternal chest pain. She has no history of trauma. She denies any personal history of DVT, PE. Her sister had a DVT after having an ankle fracture and being immobilized for long time. She denies any recent travel, malignancy. She was seen in the ER and because she is on chronic pain meds regular morphine it didn't help. She does not tolerate nonsteroidal anti-inflammatories. She was admitted for observation to rule out NM. D-dimer the ER was negative. right side upper back Pain Score (Numeric/FACES): 7 - Related Data Allergies/Adverse Reactions: Allergies Allergy/AdvReac Type Severity Reaction Status Date / Time prochlorperazine edisylate Allergy Intermediate Blurred Verified 09/23/17 21:26 [From Compazine] Vision prochlorperazine maleate Allergy Intermediate Blurred Verified 09/23/17 21:26 [From Compazine] Vision levofloxacin [From Levaquin] Allergy Tremors Verified 09/23/17 21:26 metoclopramide Allergy Tremors Verified 09/23/17 21:26 NSAIDS (Non-Steroidal Allergy Stomach Verified 09/23/17 21:26 Anti-Inflamma Upset Penicillins Allergy Stomach Verified 09/23/17 21:26 Upset pseudoephedrine HCl Allergy Tachycardia Verified 09/23/17 21:26 [From Sudafed] sumatriptan [From Imitrex] Allergy Chest Pain Verified 09/23/17 21:26 sumatriptan succinate Allergy Chest Pain Verified 09/23/17 21:26 [From Imitrex] tramadol Allergy Tachycardia Verified 09/23/17 21:26 tape Allergy Rash Uncoded 08/14/17 03:23 Home Medications: Home Meds Meclizine [Antivert] 25 mg PO ASDIRECTED PRN 04/15/13 [History] Multivitamin [Multivitamins] 1 each PO DAILY 04/15/13 [History] Propranolol [Inderal LA] 120 mg PO DAILY 04/15/13 [History] rOPINIRole [Requip] 3 mg PO BEDTIME 04/15/13 [History] Carisoprodol [Soma] 350 mg PO TID 07/23/13 [History] Hydrocodone/Acetaminophen [Hydrocodon-Acetaminophn 10-325] 1 each PO Q6HR PRN [History] Gabapentin [Neurontin] 300 mg PO BID 02/15/16 [History] traZODone 50 mg PO BEDTIME 06/28/16 [History] Levothyroxine [Synthroid] 50 mcg PO DAILY 02/17/17 [History] Magnesium 200 mg PO DAILY 02/17/17 [History] atorvaSTATin [Lipitor] 10 mg PO DAILY 02/17/17 [History] ClonazePAM [KlonoPIN] 1 - 2 tab PO ASDIRECTED PRN 08/13/17 [History] Furosemide [Lasix] 20 mg PO DAILY 09/23/17 [History] Past Medical History - Past Health History Medical/Surgical History: Denies Medical/Surgical History HEENT History: Reports: Sinusitis Other HEENT History: SINUS INFECTIONS Cardiovascular History: Reports: Hypertension, Other (See Below) Other Cardiovascular History: takes BP med for water retention. Respiratory History: Reports: Sleep Apnea Other Respiratory History: has CPAP Gastrointestinal History: Reports: GERD, PUD Other Gastrointestinal History: ulcer when kid Genitourinary History: Reports: Renal Calculus, Other (See Below) Other Genitourinary History: states that her kidneys are only 35% functional as per her doctor. Has urinary urgency at times and states that she is suppose to have surgery this coming October for her bladder. 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: Musculoskeletal History: Reports: Arthritis, Back Pain, Chronic, Fracture, Fibromyalgia Other Musculoskeletal History: stress fx in back x 2 Neurological History: Reports: Migraines Psychiatric History: Reports: Anxiety, Depression Endocrine/Metabolic History: Reports: Hypothyroidism Hematologic History: Reports: Other (See Below) Other Hematologic History: states that she has hx of blood transfusion way back in 1971 - Infectious Disease History Infectious Disease History: Reports: Chicken Pox, Measles, Mumps - Past Surgical History HEENT Surgical History: Reports: Oral Surgery, Tonsillectomy GI Surgical History: Reports: Appendectomy, Cholecystectomy, Colonoscopy, EGD, Hernia Repair/Other Female Surgical History: Reports: Hysterectomy, Salpingo-Oophorectomy Endocrine Surgical History: Reports: Other (See Below) Other Endocrine Surgeries/Procedures: Lymph node surgery--not specified. Musculoskeletal Surgical History: Reports: Arthroscopic Procedure, Carpal Tunnel , Knee Replacement Social & Family History - Family History Family Medical History: Noncontributory - Tobacco Use Smoking Status *Q: Never Smoker Second Hand Smoke Exposure: No - Caffeine Use Caffeine Use: Reports: None - Alcohol Use Days Per Week of Alcohol Use: 1 Number of Drinks Per Day: 1 Total Drinks Per Week: 1 - Recreational Drug Use Recreational Drug Use: No - Living Situation & Occupation Living situation: Reports: H&P Review of Systems - Review of Systems: Review Of Systems: See Below General: Reports: No Symptoms HEENT: Reports: No Symptoms Pulmonary: Reports: Shortness of Breath, Pleuritic Chest Pain. Denies: Wheezing , Cough, Sputum Cardiovascular: Reports: Chest Pain (Right side), Edema (Ankle edema bilaterally recently. Started on Lasix by her primary care physician.) Gastrointestinal: Reports: No Symptoms Genitourinary: Reports: No Symptoms Musculoskeletal: Reports: Back Pain (Chronic) Skin: Reports: No Symptoms Psychiatric: Reports: No Symptoms Neurological: Reports: No Symptoms Hematologic/Lymphatic: Reports: No Symptoms Immunologic: Reports: No Symptoms Exam - Exam Exam: See Below - Vital Signs Vital Signs: Last Vital Signs Temp 97.9 F 09/24/17 07:34 Pulse 70 09/24/17 07:34 Resp 14 09/24/17 07:34 BP 105/48 L 09/24/17 07:34 Pulse Ox 97 09/24/17 07:35 Weight: 167 lb 3 oz - Exam General: Alert, Oriented, Cooperative HEENT: Hearing Intact, Mucosa Moist & [place], Posterior Pharynx Clear, TMs Clear Neck: Supple, Trachea Midline Lungs: Clear to Auscultation, Normal Respiratory Effort. No: Crackles, Rales, Rhonchi Cardiovascular: Regular Rate, Regular Rhythm, Normal S1, Normal S2, Other (Pain palpation of the back is under the scapula and lateral ribs on palpation.). No : Bradycardia, Tachycardia, Systolic Murmur, Diastolic Murmur Extremities: Normal Inspection, Normal Range of Motion, Non-Tender, No Pedal Edema Skin: Warm, Cool Neuro Extensive - Mental Status: Alert, Oriented x3, Normal Mood/Affect, Normal Cognition Psychiatric: Alert, Normal Affect, Normal Mood - Patient Data Lab Results Last 24 hrs: Laboratory Results - last 24 hr 09/23/17 09/23/17 09/23/17 Range/Units 21:49 21:49 21:49 WBC 4.8 (4.5-12.0) X10-3/uL RBC 3.20 L (3.23-5.20) x10(6)uL Hgb 10.8 L (11.5-15.5) g/dL Hct 32.4 (30.0-51.3) % MCV 101.2 H (80-96) fL MCH 33.9 H (27.7-33.6) pg MCHC 33.5 (32.2-35.4) g/dL RDW 13.5 (11.5-15.5) % Plt Count 212 (125-369) X10(3)uL MPV 7.0 L (7.4-10.4) fL Neut % (Auto) 52.3 (46-82) % Lymph % (Auto) 32.7 (13-37) % Mora % (Auto) 14.0 H (4-12) % Eos % (Auto) 1 (1.0-5.0) % Baso % (Auto) 0 (0-2) % Neut # (Auto) 2.5 (1.6-8.3) # Lymph # (Auto) 1.6 (0.6-5.0) # Mora # (Auto) 0.7 (0.0-1.3) # Eos # (Auto) 0.0 (0.0-0.8) # Baso # (Auto) 0.0 (0.0-0.2) # D-Dimer, Quantitative 0.47 (0.0-0.59) mg/LFEU Sodium 142 (135-145) mmol/L Potassium 3.6 (3.5-5.3) mmol/L Chloride 104 (100-110) mmol/L Carbon Dioxide 31 (21-32) mmol/L BUN 24 H (7-18) mg/dL Creatinine 1.2 H (0.55-1.02) mg/dL Est Cr Clr Drug Dosing 41.50 mL/min Estimated GFR (MDRD) 45 L (>60) BUN/Creatinine Ratio 20.0 (9-20) Glucose 108 (80-116) mg/dL Calcium 8.5 L (8.6-10.2) mg/dL Total Bilirubin 0.3 (0.1-1.3) mg/dL AST 21 (5-25) IU/L ALT 21 (12-36) U/L Alkaline Phosphatase 80 (56-112) IU/L Troponin I (<0.017-0.056) ng/mL Total Protein 7.2 (6.0-8.0) g/dL Albumin 3.6 (3.2-4.6) g/dL Globulin 3.6 g/dL Albumin/Globulin Ratio 1.0 09/23/17 09/24/17 09/24/17 Range/Units 21:49 05:55 05:55 WBC 4.5 (4.5-12.0) X10-3/uL RBC 2.95 L (3.23-5.20) x10(6)uL Hgb 9.8 L (11.5-15.5) g/dL Hct 29.9 L (30.0-51.3) % MCV 101.1 H (80-96) fL MCH 33.3 (27.7-33.6) pg MCHC 32.9 (32.2-35.4) g/dL RDW 14.0 (11.5-15.5) % Plt Count 167 (125-369) X10(3)uL MPV 7.1 L (7.4-10.4) fL Neut % (Auto) 53.3 (46-82) % Lymph % (Auto) 34.2 (13-37) % Mora % (Auto) 11.5 (4-12) % Eos % (Auto) 0 L (1.0-5.0) % Baso % (Auto) 1 (0-2) % Neut # (Auto) 2.5 (1.6-8.3) # Lymph # (Auto) 1.5 (0.6-5.0) # Mora # (Auto) 0.5 (0.0-1.3) # Eos # (Auto) 0.0 (0.0-0.8) # Baso # (Auto) 0.0 (0.0-0.2) # D-Dimer, Quantitative (0.0-0.59) mg/LFEU Sodium 142 (135-145) mmol/L Potassium 3.9 (3.5-5.3) mmol/L Chloride 106 (100-110) mmol/L Carbon Dioxide 32 (21-32) mmol/L BUN 22 H (7-18) mg/dL Creatinine 1.1 H (0.55-1.02) mg/dL Est Cr Clr Drug Dosing 45.27 mL/min Estimated GFR (MDRD) 50 L (>60) BUN/Creatinine Ratio 20.0 (9-20) Glucose 92 (80-116) mg/dL Calcium 7.9 L (8.6-10.2) mg/dL Total Bilirubin (0.1-1.3) mg/dL AST (5-25) IU/L ALT (12-36) U/L Alkaline Phosphatase (56-112) IU/L Troponin I < 0.017 L (<0.017-0.056) ng/mL Total Protein (6.0-8.0) g/dL Albumin (3.2-4.6) g/dL Globulin g/dL Albumin/Globulin Ratio 09/24/18 Range/Units 05:55 WBC (4.5-12.0) X10-3/uL RBC (3.23-5.20) x10(6)uL Hgb (11.5-15.5) g/dL Hct (30.0-51.3) % MCV (80-96) fL MCH (27.7-33.6) pg MCHC (32.2-35.4) g/dL RDW (11.5-15.5) % Plt Count (125-369) X10(3)uL MPV (7.4-10.4) fL Neut % (Auto) (46-82) % Lymph % (Auto) (13-37) % Mora % (Auto) (4-12) % Eos % (Auto) (1.0-5.0) % Baso % (Auto) (0-2) % Neut # (Auto) (1.6-8.3) # Lymph # (Auto) (0.6-5.0) # Mora # (Auto) (0.0-1.3) # Eos # (Auto) (0.0-0.8) # Baso # (Auto) (0.0-0.2) # D-Dimer, Quantitative (0.0-0.59) mg/LFEU Sodium (135-145) mmol/L Potassium (3.5-5.3) mmol/L Chloride (100-110) mmol/L Carbon Dioxide (21-32) mmol/L BUN (7-18) mg/dL Creatinine (0.55-1.02) mg/dL Est Cr Clr Drug Dosing mL/min Estimated GFR (MDRD) (>60) BUN/Creatinine Ratio (9-20) Glucose (80-116) mg/dL Calcium (8.6-10.2) mg/dL Total Bilirubin (0.1-1.3) mg/dL AST (5-25) IU/L ALT (12-36) U/L Alkaline Phosphatase (56-112) IU/L Troponin I < 0.017 L (<0.017-0.056) ng/mL Total Protein (6.0-8.0) g/dL Albumin (3.2-4.6) g/dL Globulin g/dL Albumin/Globulin Ratio Result Diagrams: 09/24/17 05:55 09/24/17 05:55 EKG INTERPRETATION EKG Interpretation Comments: No significant ST abnormality 2 EKGs. - Problem List (1) Atypical chest pain SNOMED Code(s): 991043891 ICD Code: R07.89 - OTHER CHEST PAIN Status: Acute Current Visit: Yes Problem List Initiated/Reviewed/Updated: Yes Orders Last 24hrs: Active Orders 24 hr Category Date Time Status Patient Status [ADT] Routine ADT 09/23/17 23:05 Active Oxygen Therapy [RC] PRN Care 09/23/17 23:05 Active Up With Assistance [RC] ASDIRECTED Care 09/23/17 23:05 Active Vital Signs [RC] 04,08,12,16,20,00 Care 09/23/17 23:05 Active Ribs 2V w Chest Rt [CR] Stat Exams 09/23/17 22:17 Taken Enoxaparin [Lovenox] Med 09/23/17 23:15 Active 30 mg SUBCUT Q24H LORazepam [Ativan] Med 09/23/17 23:05 Active 1 mg IV Q6H PRN Morphine Med 09/23/17 23:05 Active 2 mg IVPUSH Q2H PRN Pantoprazole [ProTONIX IV] Med 09/23/17 23:15 Active 40 mg IVPUSH Q12H Sodium Chloride 0.9% [Saline Flush] Med 09/23/17 23:05 Active 10 ml FLUSH ASDIRECTED PRN Peripheral IV Insertion Adult [OM.PC] Routine Oth 09/23/17 23:05 Ordered Resuscitation Status Routine Resus Stat 09/23/17 23:05 Ordered EKG 12 Lead [EK] AM Ther 09/24/17 05:11 Ordered Medication Orders Enoxaparin Sodium (Lovenox) 30 mg SUBCUT Q24H [facility] Last Admin: 09/23/17 23:52 Dose: 30 mg Lorazepam (Ativan) 1 mg IV Q6H PRN PRN Reason: Nausea/Vomiting Morphine Sulfate (Morphine) 2 mg IVPUSH Q2H PRN PRN Reason: Pain (severe 7-10) Last Admin: 09/24/17 05:43 Dose: 2 mg Admin: 09/24/17 02:33 Dose: 2 mg Admin: 09/23/17 23:53 Dose: 2 mg Pantoprazole Sodium (Protonix Iv) 40 mg IVPUSH Q12H [facility] Last Admin: 09/23/17 23:52 Dose: 40 mg Sodium Chloride (Saline Flush) 10 ml FLUSH ASDIRECTED PRN PRN Reason: Keep Vein Open Last Admin: 09/24/17 05:39 Dose: 10 ml Admin: 09/24/17 02:32 Dose: 10 ml Assessment/Plan Comment:: 1.. Admit for rule out NM. 2. Well's criteria is 0 and a negative d-dimer-PE unlikely. 3.Morphine for pain. 4. Troponins serial 5. Regular diet. 6. Up ad irma.
--- NOTE | 2017-09-24 09:25 | PCM.SN ---
- Free Text/Narrative Note: Patient continues of the pain. She is ruled out for OH, PE, pneumonia or rib fracture. We'll discharged to home on Percocet and Tylenol. Hold her hydrocodone until she is improved.
--- NOTE | 2017-09-24 09:27 | PCM.DCSUM1 ---
Discharge Summary - Hospital Course Free Text/Narrative:: [place] course-patient was admitted for observation in the ICU. She had 2 negative troponins. Chest x-ray PA with ribs was read as negative by the ER doctor and myself. Radiologist is not looked at yet. Was criteria was 0 and she had a negative d-dimer so PE is unlikely. She's on chronic hydrocortisone pain was very difficult to control. She can't take and stays because her stomach is upset. We'll try her on some oxycodone 5 mg every 4 hours when necessary and Tylenol extra strength 500 mg 2 pills 3 times a day for the next week. She will hold her hydrocodone. If she improves she can stop the oxycodone Tylenol and restart her hydrocodone. We did reiterate that she should not take too much Tylenol. She was given Lovenox for prophylaxis for DVT will she was here. Creatinine was slightly elevated at 1.1 and hemoglobin was low at 9.8. Brief History: This is a 66-year-old female patient started having right thoracic chest pain. She says it feels like someone squeezing her breasts that radiates around to her right scapula. She has no cough. She says she felt maybe a couple times she is shortness of breath but not really sure. She has no retrosternal chest pain. She has no history of trauma. She denies any personal history of DVT, PE. Her sister had a DVT after having an ankle fracture and being immobilized for long time. She denies any recent travel, malignancy. She was seen in the ER and because she is on chronic pain meds regular morphine it didn't help. She does not tolerate nonsteroidal anti-inflammatories. She was admitted for observation to rule out PA. D-dimer the ER was negative. Diagnosis: Stroke: No Modified Hubbard Scale: No Symptoms at All Modified Lana Scale Score: 0 - Discharge Data Discharge Date: 09/24/17 Discharge Disposition: Home, Self-Care 01 Condition: Good - Discharge Diagnosis/Problem(s) (1) Pleuritic chest pain SNOMED Code(s): 7294277 ICD Code: R07.81 - PLEURODYNIA Status: Acute Current Visit: Yes - Patient Instructions Diet: Regular Diet as Tolerated Activity: Apply Ice Driving: May Drive Today Showering/Bathing: August Shower Notify Provider of: Increased Pain Other/Special Instructions: 1. Recheck with her primary physician in [place] and 7 -10 days. 2. Tylenol Extra Strength 500 mg [id number] 2 pills 3 times a day. 3. She can use the Tylenol while she is in oxycodone. If she goes back to her regular hydrocodone she is to stop the Effexor strength Tylenol. 4. Ice or heat 4 times a day for 20 minutes to the right chest wall. - Discharge Plan Prescriptions/Med Rec: oxyCODONE HCl [Oxycodone HCl] 5 mg PO Q4HR #20 capsule Home Medications: Home Meds Meclizine [Antivert] 25 mg PO BID PRN 04/15/13 [History] Multivitamin [Multivitamins] 1 each PO DAILY 04/15/13 [History] Carisoprodol [Soma] 350 mg PO TID 07/23/13 [History] Hydrocodone/Acetaminophen [Hydrocodon-Acetaminophn 10-325] 1 - 2 each PO Q6H PRN 10/05/14 [History] Gabapentin [Neurontin] 300 mg PO BID 02/15/16 [History] traZODone 50 mg PO BEDTIME 06/28/16 [History] Levothyroxine [Synthroid] 50 mcg PO DAILY 02/17/17 [History] Magnesium 400 mg PO DAILY 02/17/17 [History] atorvaSTATin [Lipitor] 10 mg PO DAILY 02/17/17 [History] ClonazePAM [KlonoPIN] 0.5 mg PO BEDTIME PRN 08/13/17 [History] Furosemide [Lasix] 20 mg PO DAILY 09/23/17 [History] DULoxetine HCl [Duloxetine HCl] 30 mg PO BEDTIME 09/24/17 [History] Estrogen Compound Cream 1 applic VAG MOFR 09/24/17 [History] Ketotifen Fumarate [Zaditor] 1 drop EYEBOTH BID PRN 09/24/17 [History] Propranolol [Inderal LA] 60 mg PO DAILY 09/24/17 [History] Zonisamide 50 mg PO DAILY 09/24/17 [History] metroNIDAZOLE [Metronidazole] 1 applic VAG BEDTIME 09/24/17 [History] oxyCODONE HCl [Oxycodone HCl] 5 mg PO Q4HR #20 capsule 09/24/17 [Rx] rOPINIRole [Requip] 3 mg PO BEDTIME 09/24/17 [History] Patient Handouts: Fall Prevention in Hospitals, Adult, Venous Thromboembolism Prevention Forms: ED Department Discharge Referrals: PCP,None [Primary Care Provider] - - Discharge Summary/Plan Comment DC Time >30 min.: No - Patient Data Vitals - Most Recent: Last Vital Signs Temp 97.9 F 09/24/17 07:34 Pulse 70 09/24/17 07:34 Resp 14 09/24/17 07:34 BP 105/48 L 09/24/17 07:34 Pulse Ox 97 09/24/17 07:35 Weight - Most Recent: 167 lb 3 oz I&O - Last 24 hours: Intake & Output 09/23/17 09/24/17 09/24/17 22:59 06:59 14:59 Intake Total 150 Output Total 400 Balance -250 Lab Results - Last 24 hrs: Laboratory Results - last 24 hr 09/23/17 09/23/17 09/23/17 Range/Units 21:49 21:49 21:49 WBC 4.8 (4.5-12.0) X10-3/uL RBC 3.20 L (3.23-5.20) x10(6)uL Hgb 10.8 L (11.5-15.5) g/dL Hct 32.4 (30.0-51.3) % MCV 101.2 H (80-96) fL MCH 33.9 H (27.7-33.6) pg MCHC 33.5 (32.2-35.4) g/dL RDW 13.5 (11.5-15.5) % Plt Count 212 (125-369) X10(3)uL MPV 7.0 L (7.4-10.4) fL Neut % (Auto) 52.3 (46-82) % Lymph % (Auto) 32.7 (13-37) % [place] % (Auto) 14.0 H (4-12) % Eos % (Auto) 1 (1.0-5.0) % Baso % (Auto) 0 (0-2) % Neut # (Auto) 2.5 (1.6-8.3) # Lymph # (Auto) 1.6 (0.6-5.0) # Monroe # (Auto) 0.7 (0.0-1.3) # Eos # (Auto) 0.0 (0.0-0.8) # Baso # (Auto) 0.0 (0.0-0.2) # D-Dimer, Quantitative 0.47 (0.0-0.59) mg/LFEU Sodium 142 (135-145) mmol/L Potassium 3.6 (3.5-5.3) mmol/L Chloride 104 (100-110) mmol/L Carbon Dioxide 31 (21-32) mmol/L BUN 24 H (7-18) mg/dL Creatinine 1.2 H (0.55-1.02) mg/dL Est Cr Clr Drug Dosing 41.50 mL/min Estimated GFR (MDRD) 45 L (>60) BUN/Creatinine Ratio 20.0 (9-20) Glucose 108 (80-116) mg/dL Calcium 8.5 L (8.6-10.2) mg/dL Total Bilirubin 0.3 (0.1-1.3) mg/dL AST 21 (5-25) IU/L ALT 21 (12-36) U/L Alkaline Phosphatase 80 (56-112) IU/L Troponin I (<0.017-0.056) ng/mL Total Protein 7.2 (6.0-8.0) g/dL Albumin 3.6 (3.2-4.6) g/dL Globulin 3.6 g/dL Albumin/Globulin Ratio 1.0 09/23/17 09/24/17 09/24/17 Range/Units 21:49 05:55 05:55 WBC 4.5 (4.5-12.0) X10-3/uL RBC 2.95 L (3.23-5.20) x10(6)uL Hgb 9.8 L (11.5-15.5) g/dL Hct 29.9 L (30.0-51.3) % MCV 101.1 H (80-96) fL MCH 33.3 (27.7-33.6) pg MCHC 32.9 (32.2-35.4) g/dL RDW 14.0 (11.5-15.5) % Plt Count 167 (125-369) X10(3)uL MPV 7.1 L (7.4-10.4) fL Neut % (Auto) 53.3 (46-82) % Lymph % (Auto) 34.2 (13-37) % Monroe % (Auto) 11.5 (4-12) % Eos % (Auto) 0 L (1.0-5.0) % Baso % (Auto) 1 (0-2) % Neut # (Auto) 2.5 (1.6-8.3) # Lymph # (Auto) 1.5 (0.6-5.0) # Monroe # (Auto) 0.5 (0.0-1.3) # Eos # (Auto) 0.0 (0.0-0.8) # Baso # (Auto) 0.0 (0.0-0.2) # D-Dimer, Quantitative (0.0-0.59) mg/LFEU Sodium 142 (135-145) mmol/L Potassium 3.9 (3.5-5.3) mmol/L Chloride 106 (100-110) mmol/L Carbon Dioxide 32 (21-32) mmol/L BUN 22 H (7-18) mg/dL Creatinine 1.1 H (0.55-1.02) mg/dL Est Cr Clr Drug Dosing 45.27 mL/min Estimated GFR (MDRD) 50 L (>60) BUN/Creatinine Ratio 20.0 (9-20) Glucose 92 (80-116) mg/dL Calcium 7.9 L (8.6-10.2) mg/dL Total Bilirubin (0.1-1.3) mg/dL AST (5-25) IU/L ALT (12-36) U/L Alkaline Phosphatase (56-112) IU/L Troponin I < 0.017 L (<0.017-0.056) ng/mL Total Protein (6.0-8.0) g/dL Albumin (3.2-4.6) g/dL Globulin g/dL Albumin/Globulin Ratio 09/24/17 Range/Units 05:55 WBC (4.5-12.0) X10-3/uL RBC (3.23-5.20) x10(6)uL Hgb (11.5-15.5) g/dL Hct (30.0-51.3) % MCV (80-96) fL MCH (27.7-33.6) pg MCHC (32.2-35.4) g/dL RDW (11.5-15.5) % Plt Count (125-369) X10(3)uL MPV (7.4-10.4) fL Neut % (Auto) (46-82) % Lymph % (Auto) (13-37) % Monroe % (Auto) (4-12) % Eos % (Auto) (1.0-5.0) % Baso % (Auto) (0-2) % Neut # (Auto) (1.6-8.3) # Lymph # (Auto) (0.6-5.0) # [place] # (Auto) (0.0-1.3) # Eos # (Auto) (0.0-0.8) # Baso # (Auto) (0.0-0.2) # D-Dimer, Quantitative (0.0-0.59) mg/LFEU Sodium (135-145) mmol/L Potassium (3.5-5.3) mmol/L Chloride (100-110) mmol/L Carbon Dioxide (21-32) mmol/L BUN (7-18) mg/dL Creatinine (0.55-1.02) mg/dL Est Cr Clr Drug Dosing mL/min Estimated GFR (MDRD) (>60) BUN/Creatinine Ratio (9-20) Glucose (80-116) mg/dL Calcium (8.6-10.2) mg/dL Total Bilirubin (0.1-1.3) mg/dL AST (5-25) IU/L ALT (12-36) U/L Alkaline Phosphatase (56-112) IU/L Troponin I < 0.017 L (<0.017-0.056) ng/mL Total Protein (6.0-8.0) g/dL Albumin (3.2-4.6) g/dL Globulin g/dL Albumin/Globulin Ratio Med Orders - Current: Current Medications Enoxaparin Sodium (Lovenox) 30 mg SUBCUT Q24H [facility] Last Admin: 09/23/17 23:52 Dose: 30 mg Lorazepam (Ativan) 1 mg IV Q6H PRN PRN Reason: Nausea/Vomiting Morphine Sulfate (Morphine) 2 mg IVPUSH Q2H PRN PRN Reason: Pain (severe 7-10) Last Admin: 09/24/17 05:43 Dose: 2 mg Pantoprazole Sodium (Protonix Iv) 40 mg IVPUSH Q12H [facility] Last Admin: 09/23/17 23:52 Dose: 40 mg Sodium Chloride (Saline Flush) 10 ml FLUSH ASDIRECTED PRN PRN Reason: Keep Vein Open Last Admin: 09/24/17 05:39 Dose: 10 ml Discontinued Medications Morphine Sulfate (Morphine) 10 mg IM ONETIME ONE Stop: 09/23/17 21:40 Last Admin: 09/23/17 21:44 Dose: 10 mg
[2017-09-24] MEDS ORDERED: oxyCODONE 5 MG Tab PO PRN (09:33)
--- NOTE | 2017-09-24 11:12 | CR ---
INDICATION: Right-sided rib pain with no history of trauma, starts at right breast and extends to her back. RIGHT RIBS WITH CHEST: CHEST: PA view of the chest was obtained 09/23/2017 and compared with 2015 and 07/23/2014, now revealing linear densities at the right lung base, which may represent linear atelectasis. Minimal patchy pneumonia is difficult to exclude with the heavy markings present in that area also. However, the markings are fairly similar to 2014, except the probable linear atelectatic areas. Otherwise, no active infiltrate or effusion was seen. The heart did not appear enlarged. The aorta is tortuous with calcification in the arch. IMPRESSION: Right basilar changes likely are linear atelectatic in nature. Minimal pneumonia is difficult to entirely exclude in that area. Fibrosis could also be present. 2. ASD aorta. 3. 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 RIGHT RIBS: Four views of the right ribs were obtained 09/23/2017 and compared with 04/15/2013. There is a slightly offset fracture of the anterolateral aspect of the 5th right rib. This appearance was not present on the previous study of 2013 and may represent an acute fracture site. No other definite bony abnormality was identified. IMPRESSION: Anterolateral 5th rib fracture, minimally offset - approximately 1.0 to 1.5 mm, likely acute - correlate clinically. Report was given in person to Dr. Lee at 1047 hours on 09/24/2017. Report was also called to Dr. Ramirez at [address] [facility]
[2017-09-24] MEDS: Pantoprazole 40 MG Vial IVPUSH SCH (12:35)
== END 2017-09-24 12:00 | disposition home or self-care (01) ==
LOC: FB.ED 21:11 → FB.ICU 23:08
PROVIDERS: ADMIT Family Medicine; ATTEND Family Medicine
DX: S22.31XA Fracture of one rib, right side, initial encounter for closed fracture (principal); I10 Essential (primary) hypertension; G47.30 Sleep apnea, unspecified; Z99.89 Dependence on other enabling machines and devices; K21.9 Gastro-esophageal reflux disease without esophagitis; K27.9 Peptic ulcer, site unspecified, unspecified as acute or chronic, without hemorrhage or perforation; M19.90 Unspecified osteoarthritis, unspecified site; E03.9 Hypothyroidism, unspecified; M79.7 Fibromyalgia; Z79.899 Other long term (current) drug therapy; Z88.0 Allergy status to penicillin; Z88.2 Allergy status to sulfonamides; Z88.5 Allergy status to narcotic agent; Z88.6 Allergy status to analgesic agent; Z88.8 Allergy status to other drugs, medicaments and biological substances; Z91.048 Other nonmedicinal substance allergy status
CPT/HCPCS: 36415; 71101; 80048; 80053; 84484; 85025; 85379; 93005; 93010; 96372; 99283; 99285; A9270; C9113; J1650; J2270; J7050; 96374; 96375; 96376; G0378